=== PATIENT | male | born 1960 | race Hispanic/Latino ===

== ENCOUNTER 2024-09-05 07:42 | Day surgery (SDC) | payer OTHER ==
[~2024-09-05] VITALS: Ht 182.9 cm; Wt 88.9 kg
[2024-09-05] VITALS (14 sets, daily range): BP systolic 126–156; BP diastolic 80–109; PULSE 66–85; RESP 14–16; TEMP 97.3–98.2
[~2024-09-05 07:42] MED LIST: CARV25TA PO; GLIPIZIDE PO; LISI20TA24 PO; RIVA20TA PO; ROSU5TAB51 PO
[2024-09-05] MEDS: 0.9%NACL 1000ML 1,000 ML IV ONE (09:25)
[2024-09-05] MEDS ORDERED: proPOFol 10 MG/ML 20ML VIAL IV ONE (11:07)
[2024-09-05] MEDS ORDERED: SUCCINYLCHOLINE CHLORIDE 20 MG/ML 10 ML VIAL ONE (11:07)
[2024-09-05] MEDS ORDERED: ondanSETRON 4MG INJ ONE (11:08)
[2024-09-05] MEDS ORDERED: FENTanyl CITRate PF 50 MCG/1 ML 2ML VIAL ONE (11:08)
[2024-09-05] MEDS ORDERED: dexaMETHasone SOD PHOSPHATE 10MG/ML 1ML VIAL ONE (11:08)
[2024-09-05] MEDS: INDOMETHACIN 100 MG SUPP.RECT RC SCH (11:28)
--- NOTE | 2024-09-05 11:50 | EKG ---
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
--- NOTE | 2024-09-05 16:58 | HMCIMG ---
ERCP BILI/PANC DUCT REASON: CALCULUS OF BILE DUCT WITHOUT CHOLANGITIS OR CHOLECYSTITIS COMPARISON: None TECHNIQUE: 7 intraprocedure spot views are obtained documenting ERCP. Fluoroscopy time was 1 minute 34 seconds. IMPRESSION: 1. ERCP procedure documentation.
== END 2024-09-05 13:20 | disposition home or self-care (01) ==
LOC: ENDO 07:42 → DAH 07:42 → ENDO 13:20
PROVIDERS: ATTEND Internal Medicine Gastroenterology
DX: K80.50 Calculus of bile duct without cholangitis or cholecystitis without obstruction (principal); I10 Essential (primary) hypertension; E78.5 Hyperlipidemia, unspecified; I48.91 Unspecified atrial fibrillation; R94.5 Abnormal results of liver function studies; K21.00 Gastro-esophageal reflux disease with esophagitis, without bleeding; K76.0 Fatty (change of) liver, not elsewhere classified; R93.5 Abnormal findings on diagnostic imaging of other abdominal regions, including retroperitoneum; E11.9 Type 2 diabetes mellitus without complications; Z90.49 Acquired absence of other specified parts of digestive tract; Z98.890 Other specified postprocedural states; Z79.01 Long term (current) use of anticoagulants; Z79.899 Other long term (current) drug therapy
CPT/HCPCS: 43264; 82948 ×2; 43273; 74328; 93005; J3010; J1100; J0330; J7030 ×2; J2704; J2405; A4620; A4215 ×2; A4223; A4657 ×2; A7002; A4222; A4221; A4663; A4606; C1769; 74330; J3490